=== PATIENT | female | born 1950 | race Caucasian/White ===

== ENCOUNTER 2020-12-04 20:25 | Inpatient (IN) | payer MEDICARE, MEDICAID, SELFPAY ==
--- NOTE | ~2020-12-04 | CT_ITS ---
EXAMINATION: CT HEAD WITHOUT CONTRAST (STROKE PROTOCOL) CLINICAL INFORMATION: Stroke protocol. Symptoms resolved COMPARISON: None TECHNIQUE: Contiguous axial imaging was performed from the skull base to vertex without intravenous administration of contrast. This CT examination was performed using dose optimization techniques as appropriate, variously including the following: *Automated exposure control *Adjustment of mA and/or kV according to patient size (this includes techniques or standardized protocols for targeted exams where dose is matched to indication/reason for exam; i.e. extremities or head) *Use of iterative reconstruction technique DLP: 675 mGy-cm FINDINGS: There is no intracranial hemorrhage, hematoma, or extra-axial fluid collection. The ventricles are normal in size. There is no hydrocephalus, edema, or mass effect. The gutierrez-white matter differentiation appears symmetric. There is no acute infarct or mass lesion. Remote CSF density lacunar infarct in the right caudate head. There is equivocal asymmetric hyperdensity in the right middle cerebral artery compared to the left. The calvarium appears intact. There is no pneumocephalus or orbital emphysema. No acute sinusitis. There is fluid in the inferior right mastoid air cells. CT/CT head for stroke IMPRESSION: No intracranial hemorrhage. No evidence of acute large vessel territory ischemia. Equivocal asymmetric hyperdensity in the right middle cerebral artery compared to the left. Favor this is due to atherosclerotic changes rather than thrombus. Recommend clinical correlation. This critical result was discussed with Simeon Grover MD by telephone at 12/04/2020 9:10 PM and it was ascertained that the content and urgency of the report was understood at the time of direct communication.
--- NOTE | 2020-12-04 20:38 | PC.NURSE ---
MD romano notified of patient and pt to be brought to bed 9.
[2020-12-04 20:43] VITALS: BP 171/85; PULSE 65; RESP 16; TEMP 36.5; O2SAT 98; BMI 18.8
--- NOTE | 2020-12-04 20:43 | PC.NURSE ---
FAMILY REPORTS PT JUST FLEW BACK FROM [place], 12 HOUR FLIGHT. PT WAS WITH GRANDSON, ON FACETIME WITH DAUGHTER. DAUGHTER TOLD GRANDSON THAT IT LOOKS LIKE SHE'S HAVING A STROKE. FAMILY REPORT SLURRED SPEECH, UNABLE TO KEEP HEAD UPRIGHT AND DROOPING EYELIDS. SYMPTOMS BEGAN 30 MINUTES PRIOR TO ARRIVAL TO ER. PT ARRIVED WITH CLEAR SPEECH, EQUAL STRONG BILATERAL HANDS/ARMS/LEGS. EQUAL SMILE, NO FACIAL DROOP.
--- NOTE | 2020-12-04 20:49 | ECG_ITS ---
Test Reason : AFIB Blood Pressure : / mmHG Vent. Rate : 061 BPM Atrial Rate : 061 BPM P-R Int : 144 ms QRS Dur : 094 ms QT Int : 434 ms P-R-T Axes : 047 055 071 degrees QTc Int : 436 ms Normal sinus rhythm Left ventricular hypertrophy with repolarization abnormality Abnormal ECG No previous ECGs available Referred By: Simeon Grover Electronically Signed By:MARIAM NEWTON
[2020-12-04 20:55] LABS: Prothrombin Time Whole Bld POC 13.9 sec (11.1-13.5); ~PT, ~INR - Anti Coag Clinic 1.2 (0.9-1.1)
[2020-12-04 20:56] LABS: MANUAL DIFF FLAG NO
[2020-12-04 20:57] LABS: Basophils Absolute Auto 0.1 X10*3/uL (0.0-0.2); Basophils Percent Auto 1.7 % (0-2); Eosinophils Absolute Auto 0.3 X10*3/uL (0.0-0.4); Eosinophils Percent Auto 6.5 % (0-4); Hematocrit 46.5 % (37-47); Hemoglobin 16.5 g/dl (12.0-16.0); Imm Gran Abs Auto 0.01 X10*3/uL (0.00-0.03); Imm Gran Pct Auto 0.2 % (0.0-0.4); Lymphocytes Absolute Auto 1.4 X10*3/uL (1.2-4.9); Lymphocytes Percent Auto 29.2 % (20-40); Mean Corpuscular HGB Conc 35.5 g/dl (31.0-35.0); Mean Corpuscular Hemoglobin 31.1 pg (27.0-33.0); Mean Corpuscular Volume 87.7 fL (80-98); Mean Platelet Volume 9.7 fL (9.4-12.3); Monocytes Absolute Auto 0.4 X10*3/uL (0.1-1.2); Monocytes Percent Auto 7.8 % (2-11); Neutrophils Absolute Auto 2.5 X10*3/uL (2.0-8.3); Neutrophils Percent Auto 54.6 % (45-73); Platelet Count 161 X10*3/uL (160-400); Red Cell Distribution Width 13.9 % (11.0-16.0); White Blood Count 4.6 X10*3/uL (4.8-10.8)
[2020-12-04 21:14] LABS: Glucose, Whole Blood 121 mg/dL (60-115)
[2020-12-04 21:16] VITALS: BP 169/85; PULSE 59; RESP 18; O2SAT 98
[2020-12-04 21:20] LABS: Ethanol < 10 mg/dL
[2020-12-04 21:27] LABS: INTERNATIONAL NORM RATIO 1.3 (0.9-1.1); Prothrombin Time 14.3 SEC (9.9-13.0)
[2020-12-04 21:29] VITALS: BP 172/78; PULSE 61; RESP 16; O2SAT 95
[2020-12-04 21:29] LABS: Partial Thromboplastin Time 40.9 SEC (24.1-38.0)
[2020-12-04 21:44] LABS: COVID-19 Test Negative (Negative); IDNOW Serial# 9DD0AD1C
--- NOTE | 2020-12-04 21:46 | ED_ITS ---
HPI - Neuro Symptoms/Deficit General Chief Complaint: Stroke Stated Complaint: Stroke? Time Seen by Provider: 12/04/20 20:48 Source: patient and family (Grandson) Mode of arrival: ambulatory Limitations: no limitations History of Present Illness HPI Narrative: 70-year-old female who presents emergency department for evaluation of weakness, slurred speech and possible facial droop. The patient states that she traveled back from [place] today, she states that she went to the airport at 7:40 a.m. and arrived back in this area at 4:30 p.m.. She states that she was very tired. She when out to dinner with her family at the [employer] and ate dinner. She states that she had a good dinner and had no difficulty eating. At around 8:00 p.m. she was face time and with her sisters and apparently the patient's speech was slurred. There was also concerned that the patient may have had a facial droop, the grandson believes that the right side of the face was drooping but he patient believes that it may have been her left side. The patient's family was concerned that the patient was having a stroke, therefore they brought the patient to the emergency department for evaluation. According to the patient's grandson, the symptoms lasted approximately 10 minutes. The patient does have a history of peripheral arterial disease and has had a arterial femoral bypass in the past, stents in her lower extremities and she takes Xarelto and Plavix for this condition. Related Data Home Medications Medication Instructions Recorded Confirmed apixaban 5 mg tablet (Eliquis) 5 mg PO BID 12/04/20 12/04/20 atorvastatin 80 mg tablet 80 mg PO DAILY 12/04/20 12/04/20 carvedilol 12.5 mg tablet 12.5 mg PO BID 12/04/20 12/04/20 clopidogrel 75 mg tablet 75 mg PO DAILY 12/04/20 12/04/20 gabapentin 400 mg capsule 400 mg PO BID 12/04/20 12/04/20 hydralazine 50 mg tablet 50 mg PO TID 12/04/20 12/04/20 lisinopril 10 mg tablet 10 mg PO DAILY 12/04/20 12/04/20 montelukast 10 mg tablet 10 mg PO QPM 12/04/20 12/04/20 pantoprazole 40 mg tablet,delayed 40 mg PO DAILY 12/04/20 12/04/20 release potassium chloride 20 mEq 20 meq PO DAILY 12/04/20 12/04/20 tablet,extended release Allergies Allergy/AdvReac Type Severity Reaction Status Date / Time codeine Allergy Rash Verified 12/04/20 20:39 niacin Allergy Rash Verified 12/04/20 20:39 Review of Systems Review of Systems: Yes all other systems are reviewed and are negative [facility] Past Medical History [facility] Narrative: Past medical history: Hypertension, hyperlipidemia, spinal s tenosis, peripheral arterial disease of the lower extremities status post stent and bypass. Surgical history: Lower extremity arterial femoral bypass, lower extremity stents. Social history: The patient smokes 1/2 to 3/4 pack cigarettes per day times 55 years, she denies alcohol and drug use. Medical History (Updated 12/04/20 @ 23:15 by Simeon Grover MD) Hypercholesteremia Hypertension Spinal stenosis Social History Social History Alcohol intake: never Patient Tobacco Use Status: Current everyday Tobacco user Smoked in Last 30 Days: Yes Use of substances other than those prescribed or required for medical reasons: No Advance Directives: No Advance Directives Information Provided: No Physical Exam Vital Signs: Vital Signs: Last Vital Signs Temp 97.7 F 12/04/20 20:43 Pulse 56 12/04/20 22:00 Resp 18 12/04/20 22:00 BP 172/78 H 12/04/20 21:29 Pulse Ox 97 12/04/20 22:00 Body Mass Index 18.8 Const: General: cooperative and no acute distress Orie ntation/consciousness: oriented to person and oriented to place Limitations: no limitations HENMT: Head: Yes normal to inspection, Yes normocephalic and Yes atraumatic Ears: external ears normal General nose exam: Normal external nose present Face and sinus: Yes normal facial exam Mouth: Normal oral and palatal mucosa present Throat: Yes posterior oropharynx normal Eyes: General: appearance normal, both eyes and all related structures Pupils: Equal, round and reactive pupils present Neck: Neck: Yes normal visual inspection, Yes no lymphadenopathy, Yes trachea midline and Yes supple Chest: Chest palpation & inspection: normal inspection of the chest and normal palpation of entire chest wall Resp: Effort & Inspection: normal respiratory effort and able to speak in complete sentences Auscultation: clear to auscultation bilaterally Cardio: Rate: regular rate Rhythm: regular rhythm Heart sounds: S1 normal heart sound present, S2 normal heart sound present and no murmurs GI: Inspection: Yes normal to inspection Palpation (GI): Soft to palpation, nontender and no guarding Auscultation: normal bowel sounds : General: Yes no CVA tenderness Back/Spine/Pelvis: Back: no CVA tenderness Skin: General skin exam: no rashes or lesions noted Neuro: General: oriented to person and oriented to place Cranial nerves: Yes CN's II-XII intact bilaterally and Yes Equal, round and reactive pupils present Cognition (Neuro): normal cognition Motor exam (neuro): 5/5 motor strength present throughout Extrem: General: Yes normal to inspection Psych: Appearance: grossly normal Speech and movement: Normal speech and movement present Affect: normal affect Attitude: cooperative Thought process: Normal thought process present Thought content: Normal thought content present Course Course Course Narrative: 70-year-old female who presents emergency department for evaluation of slurred speech and facial droop which began around 8:00 p.m. and lasted approximately 10 minutes, symptoms resolved at the time of my evaluation. Patient's physical examination was unremarkable. The patient's NIH stroke scale was 0. I ordered a stroke evaluation on the patient. The CT scan of the patient's head revealed no acute bleed her large stroke, the radiologist felt that there may be some increased density in the right MCA compared to the left but this was a subtle finding. The patient does take Xarelto and Plavix for her peripheral arterial disease and is anticoagulated therefore she is not a thrombolytics candidate. I did discuss the patient's presentation with the covering neurologist, Dr. Escalona. He recommended that the patient be hospitalized for further evaluation of TIA versus stroke. 2232: The patient's WBC was low at 4600 otherwise her laboratory evaluation was unremarkable. Patient's 12 EKG was unremarkable with no evidence of atrial fibrillation/flutter. I did discuss admission with the patient, initially she was reluctant to be admitted however she did agree after discussion with her family. I will discuss admission with the covering hospitalist. 2314: I discussed the case with the covering hospitalist, Dr. Patel and patient was accepted on to the hospital service. MDM - Neuro Symptoms/Deficit Lab Data Result diagrams: 12/04/20 20:51 12/04/20 21:46 Labs: Lab Results 12/04/20 12/04/20 12/04/20 Range/Units 20:50 20:51 20:51 WBC 4.6 L (4.8-10.8) X10*3/uL RBC 5.30 (4.20-5.50) X10*6/uL Hgb 16.5 H (12.0-16.0) g/dl Hct 46.5 (37-47) % MCV 87.7 (80-98) fL MCH 31.1 (27.0-33.0) pg MCHC 35.5 H (31.0-35.0) g/dl RDW 13.9 (11.0-16.0) % Plt Count 161 (160-400) X10*3/uL MPV 9.7 (9.4-12.3) fL Immature Gran % (Auto) 0.2 (0.0-0.4) % Neut % (Auto) 54.6 (45-73) % Lymph % (Auto) 29.2 (20-40) % Eaton % (Auto) 7.8 (2-11) % Eos % (Auto) 6.5 H (0-4) % Baso % (Auto) 1.7 (0-2) % Lymph # (Auto) 1.4 (1.2-4.9) X10*3/uL Eaton # (Auto) 0.4 (0.1-1.2) X10*3/uL Eos # (Auto) 0.3 (0.0-0.4) X10*3/uL Baso # (Auto) 0.1 (0.0-0.2) X10*3/uL Abs Immat Gran (auto) 0.01 (0.00-0.03) X10*3/uL Absolute Neuts (auto) 2.5 (2.0-8.3) X10*3/uL Absolute Nucleated RBC 0.000 (0.0-0.012) X10*3/uL Nucleated RBC % (auto) 0.0 (0.0-0.2) /100WBC PT (9.9-13.0) SEC Whole Blood PT (11.1-13.5) sec INR (0.9-1.1) Whole Blood INR (0.9-1.1) APTT (24.1-38.0) SEC Sodium (135-145) mmol/L Potassium (3.3-5.1) mmol/L Chloride (96-108) mmol/L Carbon Dioxide (22-29) mmol/L Anion Gap (12-20) BUN (9-16) mg/dL Creatinine (0.5-1.4) mg/dL Estim Creat Clear Calc Estimated GFR POC Glucose 121 H (60-115) mg/dL Random Glucose (60-115) mg/dL Calcium (8.4-10.2) mg/dL Total Bilirubin (0.0-1.0) mg/dL Direct Bilirubin (0.0-0.5) mg/dL AST (5-31) U/L ALT (0-31) U/L Alkaline Phosphatase (39-117) U/L Total Creatine Kinase (26-140) U/L Troponin I High Sens (<3.5-17.0) ng/L Total Protein (6.5-8.0) g/dL Albumin (3.5-5.0) g/dL Ethyl Alcohol < 10 mg/dL COVID-19 ([facility]) (Negative) COVID-19 Clin Com 12/04/20 12/04/20 12/04/20 Range/Units 20:51 20:52 21:10 WBC (4.8-10.8) X10*3/uL RBC (4.20-5.50) X10*6/uL Hgb (12.0-16.0) g/dl Hct (37-47) % MCV (80-98) fL MCH (27.0-33.0) pg MCHC (31.0-35.0) g/dl RDW (11.0-16.0) % Plt Count (160-400) X10*3/uL MPV (9.4-12.3) fL Immature Gran % (Auto) (0.0-0.4) % Neut % (Auto) (45-73) % Lymph % (Auto) (20-40) % Eaton % (Auto) (2-11) % Eos % (Auto) (0-4) % Baso % (Auto) (0-2) % Lymph # (Auto) (1.2-4.9) X10*3/uL Eaton # (Auto) (0.1-1.2) X10*3/uL Eos # (Auto) (0.0-0.4) X10*3/uL Baso # (Auto) (0.0-0.2) X10*3/uL Abs Immat Gran (auto) (0.00-0.03) X10*3/uL Absolute Neuts (auto) (2.0-8.3) X10*3/uL Absolute Nucleated RBC (0.0-0.012) X10*3/uL Nucleated RBC % (auto) (0.0-0.2) /100WBC PT 14.3 H (9.9-13.0) SEC Whole Blood PT 13.9 H (11.1-13.5) sec INR 1.3 H (0.9-1.1) Whole Blood INR 1.2 H (0.9-1.1) APTT 40.9 H (24.1-38.0) SEC Sodium (135-145) mmol/L Potassium (3.3-5.1) mmol/L Chloride (96-108) mmol/L Carbon Dioxide (22-29) mmol/L Anion Gap (12-20) BUN (9-16) mg/dL Creatinine (0.5-1.4) mg/dL Estim Creat Clear Calc Estimated GFR POC Glucose (60-115) mg/dL Random Glucose (60-115) mg/dL Calcium (8.4-10.2) mg/dL Total Bilirubin (0.0-1.0) mg/dL Direct Bilirubin (0.0-0.5) mg/dL AST (5-31) U/L ALT (0-31) U/L Alkaline Phosphatase (39-117) U/L Total Creatine Kinase (26-140) U/L Troponin I High Sens 5.0 (<3.5-17.0) ng/L Total Protein (6.5-8.0) g/dL Albumin (3.5-5.0) g/dL Ethyl Alcohol mg/dL COVID-19 ([facility]) (Negative) COVID-19 Clin Com 12/04/20 12/04/20 12/04/20 Range/Units 21:10 21:46 Unknown WBC (4.8-10.8) X10*3/uL RBC (4.20-5.50) X10*6/uL Hgb (12.0-16.0) g/dl Hct (37-47) % MCV (80-98) fL MCH (27.0-33.0) pg MCHC (31.0-35.0) g/dl RDW (11.0-16.0) % Plt Count (160-400) X10*3/uL MPV (9.4-12.3) fL Immature Gran % (Auto) (0.0-0.4) % Neut % (Auto) (45-73) % Lymph % (Auto) (20-40) % Eaton % (Auto) (2-11) % Eos % (Auto) (0-4) % Baso % (Auto) (0-2) % Lymph # (Auto) (1.2-4.9) X10*3/uL Eaton # (Auto) (0.1-1.2) X10*3/uL Eos # (Auto) (0.0-0.4) X10*3/uL Baso # (Auto) (0.0-0.2) X10*3/uL Abs Immat Gran (auto) (0.00-0.03) X10*3/uL Absolute Neuts (auto) (2.0-8.3) X10*3/uL Absolute Nucleated RBC (0.0-0.012) X10*3/uL Nucleated RBC % (auto) (0.0-0.2) /100WBC PT (9.9-13.0) SEC Whole Blood PT (11.1-13.5) sec INR (0.9-1.1) Whole Blood INR (0.9-1.1) APTT (24.1-38.0) SEC Sodium 132 L (135-145) mmol/L Potassium 3.8 (3.3-5.1) mmol/L Chloride 94 L (96-108) mmol/L Carbon Dioxide 29 (22-29) mmol/L Anion Gap 13 (12-20) BUN 13 (9-16) mg/dL Creatinine 0.84 (0.5-1.4) mg/dL Estim Creat Clear Calc 44.6 Estimated GFR > 60 POC Glucose (60-115) mg/dL Random Glucose 93 (60-115) mg/dL Calcium 9.7 (8.4-10.2) mg/dL Total Bilirubin 0.4 Cancelled (0.0-1.0) mg/dL Direct Bilirubin 0.2 Cancelled (0.0-0.5) mg/dL AST 23 Cancelled (5-31) U/L ALT 11 Cancelled (0-31) U/L Alkaline Phosphatase 65 Cancelled (39-117) U/L Total Creatine Kinase 62 (26-140) U/L Troponin I High Sens (<3.5-17.0) ng/L Total Protein 7.3 Cancelled (6.5-8.0) g/dL Albumin 4.4 Cancelled (3.5-5.0) g/dL Ethyl Alcohol mg/dL COVID-19 ([facility]) Negative (Negative) COVID-19 Clin Com See Note NIH Stroke Scale Internal: Initial- Upon Arrival Level of Consciousness: Alert Level of Consciousness Questions: Answers both questions correctly Level of Consciousness Commands: Performs both tasks correctly Best Gaze: Normal Visual: No visual loss Facial Palsy: Normal Motor Arm (Right): No drift Motor Arm (Left): No drift Motor Leg (Right): No drift Motor Leg (Left): No drift Limb Ataxia: Absent Sensory: Normal Best Language: No aphasia Dysarthia: Normal Extinction and Inattention: No abnormality Score: 0 Discharge Plan Discharge Patient Disposition: Admitted As Inpatient Prescriptions: No Action atorvastatin 80 mg Tablet 80 mg PO DAILY RF: 0 carvedilol 12.5 mg Tablet 12.5 mg PO BID RF: 0 gabapentin 400 mg Capsule 400 mg PO BID RF: 0 clopidogrel 75 mg Tablet 75 mg PO DAILY RF: 0 pantoprazole 40 mg Tablet,Delayed Release (Dr/Ec) 40 mg PO DAILY RF: 0 lisinopril 10 mg Tablet 10 mg PO DAILY RF: 0 montelukast 10 mg Tablet 10 mg PO QPM RF: 0 hydralazine 50 mg Tablet 50 mg PO TID RF: 0 Eliquis 5 mg Tablet 5 mg PO BID RF: 0 potassium chloride 20 mEq Tablet Extended Release 20 meq PO DAILY RF: 0
[2020-12-04 22:00] VITALS: PULSE 56; RESP 18; O2SAT 97
[2020-12-04 22:06] LABS: Alanine Aminotransferase 11 U/L (0-31); Albumin Level 4.4 g/dL (3.5-5.0); Alkaline Phosphatase 65 U/L (39-117); Anion Gap 13 (12-20); Aspartate Amino Transferase 23 U/L (5-31); Bilirubin Direct 0.2 mg/dL (0.0-0.5); Bilirubin Total 0.4 mg/dL (0.0-1.0); Blood Urea Nitrogen 13 mg/dL (9-16); Calcium 9.7 mg/dL (8.4-10.2); Carbon Dioxide 29 mmol/L (22-29); Chloride 94 mmol/L (96-108); Creatinine Clr Calc Pharmacy 44.6; Estimated Glomerular Filt Rate > 60; Glucose Random 93 mg/dL (60-115); Potassium 3.8 mmol/L (3.3-5.1); Sodium 132 mmol/L (135-145); Total Protein 7.3 g/dL (6.5-8.0)
[2020-12-04 22:15] LABS: Stroke Lab Use COMPLETE
--- NOTE | 2020-12-04 22:22 | PC.NURSE ---
Per daughter Leidy [phone] Per daughter pt has history of TIA and dementia. there is no official HCP on file. Md. Grover speaking to daughter with pt permission.
[2020-12-05] VITALS (12 sets, daily range): BP systolic 130–184; BP diastolic 65–98; PULSE 54–67; RESP 16–19; TEMP 36.2–36.9; O2SAT 94–97; BMI 19.3
--- NOTE | 2020-12-05 | EEG_ITS ---
This is a 16-channel EEG with an EKG lead. The patient is reported awake during the tracing. Background EEG rhythm is 8 to 10 hertz, 5 to 30 microvolt posteriorly, lower amplitude fast anteriorly. Photic stimulation does not produce any significant driving. Hyperventilation is not performed. Occasionally left temporal theta range, somewhat sharply controlled waveforms were noted. No definite sharp wave or spike was noted. Cardiac lead did not reveal any significant abnormality. IMPRESSION: No definite abnormality noted on this EEG. I recommend further evaluation with ambulatory 48-hour EEG. MD NICOLE Calles/ARGELIA / [phone]
[2020-12-05] MEDS: Gabapentin 400 MG CAPSULE PO ×3 (00:29→20:49)
[2020-12-05] MEDS: Montelukast Sodium 10 MG TABLET PO ×2 (00:29→20:49)
[2020-12-05] MEDS: carvediloL 12.5 MG TABLET PO ×3 (00:29→20:49)
[2020-12-05] MEDS: Apixaban 5 MG TABLET PO ×3 (00:30→20:49)
[2020-12-05] MEDS: Omeprazole 20 MG CAPSULE.DR PO (05:15)
--- NOTE | 2020-12-05 07:18 | PM.IMHP ---
History of Present Illness Date of Service: 12/04/20 Chief Complaint: Slurred speech 70-year-old female with a history of dementia, hypercholesterolemia, hypertension, peripheral vascular disease, spinal stenosis presents to the hospital with a transient episode of slurred speech. Grandson at bedside confirmed information, patient reports that she had a long day traveling and that started at 7:00 a.m. and ended at 5:00 p.m. that day, she went to dinner with her grandchildren and at dinner she started having slurred speech, she reports that she tried talking but her mouth felt dry, her tongue felt heavy and she was not able to talk. This was witnessed by her grandson who is currently at bedside. Patient reports that the symptoms probably lasted about 10 minutes and she feels like she is back at her baseline right now. She reports that she feels droopiness of her left eyelid, but has no weakness of upper or lower extremities. She denies any numbness or tingling. She denies any chest pain, no shortness of breath, no abdominal pain nausea or vomiting, no diarrhea constipation, no urinary symptoms and no lower extremity edema. Vitals reviewed with no abnormality Labs on arrival Significant for WBC count of 4.[address] of the head shows no intracranial hemorrhage, no evidence of acute large vessel territory ischemia. This case was discussed with Neurology by the ED physician, patient will be admitted for observation and further evaluation by Neurology Review of Systems Review of Systems: Yes all other systems are reviewed and are negative FOR[facility]LY [facility], [facility] Medical History (Updated 12/05/20 @ 07:28 by Ana Patel MD) Dementia Hypercholesteremia Hypertension Peripheral vascular angioplasty status Peripheral vascular disease Spinal stenosis TIA (transient ischemic attack) Surgical History (Updated 12/05/20 @ 07:28 by Ana Patel MD) H/O angioplasty Social History Household Members: Family Housing: House Do you presently have visiting nurse or other home services: No Alcohol intake: never Patient Tobacco Use Status: Current everyday Tobacco user Smoked in Last 30 Days: Yes Patient Interested in Nicotine Replacement: No Patient Given Instructions on How to Stop Smoking: Yes Date Education Initiated: 12/05/20 Second Hand Smoke Exposure: No Use of substances other than those prescribed or required for medical reasons: No Have you been hit, kicked, punched, or otherwise hurt by someone within the past year? If so, by whom?: No Do you feel safe in your current relationship?: No Is there a partner from a previous relationship who is making you feel unsafe now?: No Are you made to feel afraid or neglected: No Advance Directives: No Advance Directives Information Provided: No Do you have thoughts of harming others: None Do you have a plan to hurt others: No Plan Recently lost weight without trying: Unsure Nutrition Risks: No Nutritional Risk Meds Allergies Allergy/AdvReac Type Severity Reaction Status Date / Time codeine Allergy Rash Verified 12/04/20 20:39 niacin Allergy Rash Verified 12/04/20 20:39 Active Medications: Current Medications Generic Name Dose Route Start Last Admin Trade Name Freq PRN Reason Stop Dose Admin Acetaminophen 650 mg 12/04/20 23:21 Acetaminophen 325 Mg Tablet PO Q6H PRN Pain, Mild (Pain Scale 1-3) Apixaban 5 mg 12/04/20 23:21 12/05/20 00:30 Apixaban 5 Mg Tablet PO 5 mg BID HEAVEN Administration Atorvastatin Calcium 80 mg 12/05/20 09:00 Atorvastatin Calcium 80 Mg Tablet PO DAILY HEAVEN Carvedilol 12.5 mg 12/04/20 23:30 12/05/20 00:29 Carvedilol 12.5 Mg Tablet PO 12.5 mg BID HEAVEN Administration Protocol Clopidogrel Bisulfate 75 mg 12/05/20 09:00 Clopidogrel Bisulfate 75 Mg Tablet PO DAILY HEAVEN Docusate Sodium 100 mg 12/04/20 23:21 Docusate Sodium 100 Mg Capsule PO DAILY PRN Constipation Gabapentin 400 mg 12/04/20 23:30 12/05/20 00:29 Gabapentin 400 Mg Capsule PO 400 mg BID HEAVEN Administration Hydralazine HCl 50 mg 12/04/20 23:30 12/05/20 00:30 Hydralazine Hcl 50 Mg Tablet PO Not Given TID HEAVEN Protocol Lisinopril 10 mg 12/05/20 09:00 Lisinopril 10 Mg Tablet PO DAILY HEAVEN Protocol Montelukast Sodium 10 mg 12/04/20 23:21 12/05/20 00:29 Montelukast Sodium 10 Mg Tablet PO 10 mg BEDTIME HEAVEN Administration Omeprazole 20 mg 12/05/20 06:30 12/05/20 05:15 Omeprazole 20 Mg Capsule. PO 20 mg DAILY@0630 [facility] Administration Ondansetron HCl 4 mg 12/04/20 23:21 Ondansetron Hcl 4 Mg/2 Ml Vial IVPUSH Q8H PRN Nausea and Vomiting Potassium Chloride 20 meq 12/05/20 09:00 Potassium Chloride Er 20 Meq Tab.Er.Prt PO DAILY [facility] Home Medications Medication Instructions Recorded Confirmed Last Taken Type apixaban 5 mg tablet (Eliquis) 5 mg PO BID 12/04/20 12/04/20 Unknown History atorvastatin 80 mg tablet 80 mg PO DAILY 12/04/20 12/04/20 Unknown History carvedilol 12.5 mg tablet 12.5 mg PO BID 12/04/20 12/04/20 Unknown History clopidogrel 75 mg tablet 75 mg PO DAILY 12/04/20 12/04/20 Unknown History gabapentin 400 mg capsule 400 mg PO BID 12/04/20 12/04/20 Unknown History hydralazine 50 mg tablet 50 mg PO TID 12/04/20 12/04/20 Unknown History lisinopril 10 mg tablet 10 mg PO DAILY 12/04/20 12/04/20 Unknown History montelukast 10 mg tablet 10 mg PO QPM 12/04/20 12/04/20 Unknown History pantoprazole 40 mg tablet,delayed 40 mg PO DAILY 12/04/20 12/04/20 Unknown History release potassium chloride 20 mEq 20 meq PO DAILY 12/04/20 12/04/20 Unknown History tablet,extended release Physical Exam Vital Signs and Narrative: Vital Signs: Last Vital Signs Temp 97.5 F 12/05/20 04:00 Pulse 54 12/05/20 04:00 Resp 18 12/05/20 04:00 BP 130/71 12/05/20 04:00 Pulse Ox 96 12/05/20 04:00 Body Mass Index 19.3 Const: General: cooperative and no acute distress Orientation/consciousness: patient oriented x3 Eyes: General: appearance normal, both eyes and all related structures Pupils: Equal, round and reactive pupils present Resp: Effort & Inspection: normal respiratory effort and able to speak in complete sentences Auscultation: clear to auscultation bilaterally Cardio: Rate: regular rate Rhythm: regular rhythm GI: Palpation (GI): Soft to palpation Auscultation: normal bowel sounds Skin: General skin exam: no rashes or lesions noted Neuro: Other: Cranial nerves 2-12 intact No neurological deficits Strength is 5/5 in all extremities General: patient oriented x3 Cranial nerves: Yes Equal, round and reactive pupils present Cognition (Neuro): normal cognition Extrem: General: Yes normal to inspection and Yes no pedal edema Results Labs CBC and Chem 7: 12/04/20 20:51 12/04/20 21:46 Labs: Laboratory Results - last 24 hr 12/04/20 12/04/20 12/04/20 20:50 20:51 20:51 MCV 87.7 MCH 31.1 MCHC 35.5 H RDW 13.9 Plt Count 161 MPV 9.7 Immature Gran % (Auto) 0.2 Neut % (Auto) 54.6 Lymph % (Auto) 29.2 Sharp % (Auto) 7.8 Eos % (Auto) 6.5 H Baso % (Auto) 1.7 Lymph # (Auto) 1.4 Sharp # (Auto) 0.4 Eos # (Auto) 0.3 Baso # (Auto) 0.1 Abs Immat Gran (auto) 0.01 Absolute Neuts (auto) 2.5 Absolute Nucleated RBC 0.000 Nucleated RBC % (auto) 0.0 PT Whole Blood PT INR Whole Blood INR APTT Anion Gap Estim Creat Clear Calc Estimated GFR POC Glucose 121 H Random Glucose Calcium Total Bilirubin Direct Bilirubin AST ALT Alkaline Phosphatase Total Creatine Kinase Troponin I High Sens Total Protein Albumin Ethyl Alcohol < 10 COVID-19 ([facility]) COVID-19 Clin Com 12/04/20 12/04/20 12/04/20 20:51 20:52 21:10 MCV MCH MCHC RDW Plt Count MPV Immature Gran % (Auto) Neut % (Auto) Lymph % (Auto) Sharp % (Auto) Eos % (Auto) Baso % (Auto) Lymph # (Auto) Sharp # (Auto) Eos # (Auto) Baso # (Auto) Abs Immat Gran (auto) Absolute Neuts (auto) Absolute Nucleated RBC Nucleated RBC % (auto) PT 14.3 H Whole Blood PT 13.9 H INR 1.3 H Whole Blood INR 1.2 H APTT 40.9 H Anion Gap Estim Creat Clear Calc Estimated GFR POC Glucose Random Glucose Calcium Total Bilirubin Direct Bilirubin AST ALT Alkaline Phosphatase Total Creatine Kinase Troponin I High Sens 5.0 Total Protein Albumin Ethyl Alcohol COVID-19 ([facility]) COVID-19 Clin Com 12/04/20 12/04/20 12/04/20 21:10 21:46 Unknown MCV MCH MCHC RDW Plt Count MPV Immature Gran % (Auto) Neut % (Auto) Lymph % (Auto) Sharp % (Auto) Eos % (Auto) Baso % (Auto) Lymph # (Auto) Sharp # (Auto) Eos # (Auto) Baso # (Auto) Abs Immat Gran (auto) Absolute Neuts (auto) Absolute Nucleated RBC Nucleated RBC % (auto) PT Whole Blood PT INR Whole Blood INR APTT Anion Gap 13 Estim Creat Clear Calc 44.6 Estimated GFR > 60 POC Glucose Random Glucose 93 Calcium 9.7 Total Bilirubin 0.4 Cancelled Direct Bilirubin 0.2 Cancelled AST 23 Cancelled ALT 11 Cancelled Alkaline Phosphatase 65 Cancelled Total Creatine Kinase 62 Troponin I High Sens Total Protein 7.3 Cancelled Albumin 4.4 Cancelled Ethyl Alcohol COVID-19 ([facility]) Negative COVID-19 Clin Com See Note Imaging Radiologist's Impressions: Impressions Head CT 12/04/20 20:49 IMPRESSION: No intracranial hemorrhage. No evidence of acute large vessel territory ischemia. Equivocal asymmetric hyperdensity in the right middle cerebral artery compared to the left. Favor this is due to atherosclerotic changes rather than thrombus. Recommend clinical correlation. This critical result was discussed with Simeon Grover MD by telephone at 12/04/2020 9:10 PM and it was ascertained that the content and urgency of the report was understood at the time of direct communication. Assessment and Plan (1) CVA (cerebral vascular accident): Status: Acute 70-year-old female who presents the hospital with a transient episode of slurred speech being admitted for evaluation by Neurology # slurred speech - most likely secondary to CVA with symptom resolution - patient reports history of significant peripheral vascular disease status post stents in her lower extremities - patient already on high dose statin, he is on anticoagulation for her history of lower extremity angioplasty as well as Plavix - neurology consulted, will await further recommendation prior to ordering MRI # history of peripheral vascular disease status post angioplasty - Continue Eliquis, Plavix, high-dose statin # hypertension - stable - continue hydralazine, lisinopril - allow for some permissive hypertension # GERD - continue pantoprazole DVT prophylaxis: Plavix Quality Stroke Does the patient have a stroke diagnosis?: No VTE Prior VTE?: No VTE Risk Level:: Medical - moderate - high VTE Device Contraindication: Treatment Not Indicated VTE Drug Contraindication: N/A - Med Ordered
[2020-12-05 07:31] LABS: MANUAL DIFF FLAG NO
[2020-12-05 07:35] LABS: Basophils Absolute Auto 0.1 X10*3/uL (0.0-0.2); Basophils Percent Auto 1.2 % (0-2); Eosinophils Absolute Auto 0.3 X10*3/uL (0.0-0.4); Eosinophils Percent Auto 6.3 % (0-4); Hemoglobin 15.8 g/dl (12.0-16.0); Imm Gran Abs Auto 0.01 X10*3/uL (0.00-0.03); Imm Gran Pct Auto 0.2 % (0.0-0.4); Lymphocytes Absolute Auto 1.4 X10*3/uL (1.2-4.9); Lymphocytes Percent Auto 27.8 % (20-40); Mean Corpuscular HGB Conc 34.3 g/dl (31.0-35.0); Mean Corpuscular Hemoglobin 30.6 pg (27.0-33.0); Mean Platelet Volume 10.3 fL (9.4-12.3); Monocytes Absolute Auto 0.5 X10*3/uL (0.1-1.2); Monocytes Percent Auto 9.2 % (2-11); Neutrophils Absolute Auto 2.8 X10*3/uL (2.0-8.3); Neutrophils Percent Auto 55.3 % (45-73); Platelet Count 159 X10*3/uL (160-400); Red Blood Count 5.17 X10*6/uL (4.20-5.50); Red Cell Distribution Width 14.1 % (11.0-16.0); White Blood Count 5.1 X10*3/uL (4.8-10.8)
[2020-12-05] MEDS: Clopidogrel Bisulfate 75 MG TABLET PO (07:35)
[2020-12-05] MEDS: Atorvastatin Calcium 80 MG TABLET PO (07:35)
[2020-12-05] MEDS: Potassium Chloride ER 20 MEQ TAB.ER.PRT PO (07:36)
[2020-12-05 08:22] LABS: Anion Gap 12 (12-20); Blood Urea Nitrogen 15 mg/dL (9-16); Calcium 9.4 mg/dL (8.4-10.2); Carbon Dioxide 27 mmol/L (22-29); Chloride 99 mmol/L (96-108); Cholesterol 190 mg/dL; Creatinine Clr Calc Pharmacy 49.1; Estimated Glomerular Filt Rate > 60; Glucose Random 76 mg/dL (60-115); HDL Cholesterol 44 mg/dL; LDL Cholesterol Calculated 131 mg/dl; Potassium 4.9 mmol/L (3.3-5.1); Sodium 133 mmol/L (135-145); Triglycerides 78 mg/dL
[2020-12-05 08:24] LABS: Glucose Urine UA NEG (NEG); Leukocyte Esterase Urine NEG (NEG); Nitrite Urine NEG (NEG); PH 6.5 (5.0-8.0); Specific Gravity - Urine <= 1.005 (1.005-1.025); Urine Blood NEG (NEG); Urine Ketones NEG (NEG); Urine Protein NEG (NEG-TRACE)
[2020-12-05 08:26] LABS: Appearance Urine CLEAR; Color Urine YELLOW
[2020-12-05 08:39] LABS: Amphetamine Screen Urine Not Detected (Not Detect); Barbiturates, Urine Not Detected (Not Detect); Benzodiazepines Screen Urine Not Detected (Not Detect); Cannabinoid Screen Urine Not Detected (Not Detect); Cocaine Screen Urine Not Detected (Not Detect); Fentanyl, urine Not Detected (Not Detect); Opiate Screen Urine Not Detected (Not Detect); Phencyclidine Screen Urine Not Detected (Not Detect)
--- NOTE | 2020-12-05 10:11 | PM.NEUROCN ---
History of Present Illness Data of Consult Service Date: 12/04/20 Primary Care Provider: Unknown Physician HPI Reason for consult: Stroke 70 years old woman with underlying history of hypertension who came to hospital after her family noted that she suddenly started to slur her speech her face became droopy and this event lasted for few minutes. She said that she remember everything but then her account was different from her family's, which suggested that she did not have full recollection of this event. Family also suggested that she had few of these events before and she had an appointment to see a neurologist in [facility] few days from now. She was in that area and was of a visitor in this area. [facility] Past Medical History Medical History (Updated 12/05/20 @ 10:14 by Becca Escalona MD) Dementia Hypercholesteremia Hypertension Peripheral vascular angioplasty status Peripheral vascular disease Spinal stenosis TIA (transient ischemic attack) Surgical History Surgical History (Updated 12/05/20 @ 07:28 by Ana Patel MD) H/O angioplasty Social History Social History Household Members: Family Housing: House Do you presently have visiting nurse or other home services: No Alcohol intake: never Patient Tobacco Use Status: Current everyday Tobacco user Smoked in Last 30 Days: Yes Patient Interested in Nicotine Replacement: No Patient Given Instructions on How to Stop Smoking: Yes Date Education Initiated: 12/05/20 Second Hand Smoke Exposure: No Use of substances other than those prescribed or required for medical reasons: No Have you been hit, kicked, punched, or otherwise hurt by someone within the past year? If so, by whom?: No Do you feel safe in your current relationship?: No Is there a partner from a previous relationship who is making you feel unsafe now?: No Are you made to feel afraid or neglected: No Advance Directives: No Advance Directives Information Provided: No Do you have thoughts of harming others: None Do you have a plan to hurt others: No Plan Recently lost weight without trying: Unsure Nutrition Risks: No Nutritional Risk Meds Allergies Allergy/AdvReac Type Severity Reaction Status Date / Time codeine Allergy Rash Verified 12/04/20 20:39 niacin Allergy Rash Verified 12/04/20 20:39 Active Medications: Current Medications Generic Name Dose Route Start Last Admin Trade Name Stefan PRN Reason Stop Dose Admin Acetaminophen 650 mg 12/04/20 23:21 Acetaminophen 325 Mg Tablet PO Q6H PRN Pain, Mild (Pain Scale 1-3) Apixaban 5 mg 12/04/20 23:21 12/05/20 07:35 Apixaban 5 Mg Tablet PO 5 mg BID HEAVEN Administration Atorvastatin Calcium 80 mg 12/05/20 09:00 12/05/20 07:35 Atorvastatin Calcium 80 Mg Tablet PO 80 mg DAILY [facility]AVEN Administration Carvedilol 12.5 mg 12/04/20 23:30 12/05/20 07:39 Carvedilol 12.5 Mg Tablet PO 12.5 mg BID HEAVEN Administration Protocol Clopidogrel Bisulfate 75 mg 12/05/20 09:00 12/05/20 07:35 Clopidogrel Bisulfate 75 Mg Tablet PO 75 mg DAILY [facility]AVEN Administration Docusate Sodium 100 mg 12/04/20 23:21 Docusate Sodium 100 Mg Capsule PO DAILY PRN Constipation Gabapentin 400 mg 12/04/20 23:30 12/05/20 07:35 Gabapentin 400 Mg Capsule PO 400 mg BID HEAVEN Administration Hydralazine HCl 50 mg 12/04/20 23:30 12/05/20 00:30 Hydralazine Hcl 50 Mg Tablet PO Not Given TID HEAVEN Protocol Montelukast Sodium 10 mg 12/04/20 23:21 12/05/20 00:29 Montelukast Sodium 10 Mg Tablet PO 10 mg BEDTIME HEAVEN Administration Omeprazole 20 mg 12/05/20 06:30 12/05/20 05:15 Omeprazole 20 Mg Capsule.Dr PO 20 mg DAILY@0630 [facility] Administration Ondansetron HCl 4 mg 12/04/20 23:21 Ondansetron Hcl 4 Mg/2 Ml Vial IVPUSH Q8H PRN Nausea and Vomiting Potassium Chloride 20 meq 12/05/20 09:00 12/05/20 07:36 Potassium Chloride Er 20 Meq Tab.Er.Prt PO 20 meq DAILY [facility] Administration Home Medications Medication Instructions Recorded Confirmed Last Taken Type apixaban 5 mg tablet (Eliquis) 5 mg PO BID 12/04/20 12/04/20 Unknown History atorvastatin 80 mg tablet 80 mg PO DAILY 12/04/20 12/04/20 Unknown History carvedilol 12.5 mg tablet 12.5 mg PO BID 12/04/20 12/04/20 Unknown History clopidogrel 75 mg tablet 75 mg PO DAILY 12/04/20 12/04/20 Unknown History gabapentin 400 mg capsule 400 mg PO BID 12/04/20 12/04/20 Unknown History hydralazine 50 mg tablet 50 mg PO TID 12/04/20 12/04/20 Unknown History lisinopril 10 mg tablet 10 mg PO DAILY 12/04/20 12/04/20 Unknown History montelukast 10 mg tablet 10 mg PO QPM 12/04/20 12/04/20 Unknown History pantoprazole 40 mg tablet,delayed 40 mg PO DAILY 12/04/20 12/04/20 Unknown History release potassium chloride 20 mEq 20 meq PO DAILY 12/04/20 12/04/20 Unknown History tablet,extended release Physical Exam Vital Signs: Vital Signs: Last Vital Signs Temp 97.6 F 12/05/20 07:46 Pulse 57 12/05/20 07:46 Resp 16 12/05/20 07:46 BP 142/85 H 12/05/20 07:46 Pulse Ox 95 12/05/20 07:46 Body Mass Index 19.3 Neuro: Other: She was alert and awake with normal spontaneity of speech fluency comprehension and affect. Pupils were round reactive to light. Face was symmetrical. There was no obvious focal weakness. Deep tendon reflexes were trace to 1+ with flexor plantars. Results Labs CBC & Chem 7: 12/05/20 05:56 12/05/20 05:56 Labs: Short CBC 12/04/20 12/05/20 Range/Units 20:51 05:56 WBC 4.6 L 5.1 (4.8-10.8) X10*3/uL Hgb 16.5 H 15.8 (12.0-16.0) g/dl Hct 46.5 46.0 (37-47) % Plt Count 161 159 L (160-400) X10*3/uL BMP 12/04/20 12/05/20 21:46 05:56 Sodium 132 L 133 L Potassium 3.8 4.9 D Chloride 94 L 99 Carbon Dioxide 29 27 BUN 13 15 Creatinine 0.84 0.78 Calcium 9.7 9.4 Cardiac Enzymes 12/04/20 Range/Units 21:46 Total Creatine Kinase 62 (26-140) U/L Liver Function 12/04/20 12/04/20 Range/Units 21:46 Unknown Total Bilirubin 0.4 Cancelled (0.0-1.0) mg/dL Direct Bilirubin 0.2 Cancelled (0.0-0.5) mg/dL AST 23 Cancelled (5-31) U/L ALT 11 Cancelled (0-31) U/L Alkaline Phosphatase 65 Cancelled (39-117) U/L Albumin 4.4 Cancelled (3.5-5.0) g/dL Urine 12/05/20 Range/Units 08:06 Urine Color YELLOW Urine Appearance CLEAR Urine pH 6.5 (5.0-8.0) Ur Specific [place] <= 1.005 (1.005-1.025) Urine Protein NEG (NEG-TRACE) MG/DL Urine Glucose (UA) NEG (NEG) MG/DL Her noncontrast head CT revealed moderate amount of chronic microvascular ischemic disease. Assessment and Plan (1) Complex partial seizure: Status: Acute Her overall presentation was suggestive of complex partial seizure disorder. She had few of these events and has an appointment to see a neurologist in few days in [facility]. My recommendation at this time is to continue her baseline medicines and she should have the neurology evaluation and probably electroencephalography to confirm this diagnosis and its appropriate treatment. In the meantime she should be careful and should avoid driving and activities that could put her life in danger such as swimming alone or sitting in a soaking tub alone. Procedures Date of Service Date of Service: 12/05/20
--- NOTE | 2020-12-05 11:01 | MHC.CM.PN ---
MET WITH PT AND FAMILY PT IS Litzy THOMPSON ,SHE LIVES ALONE AND IS FROM [place] PT DOES NOT FEEL SHE WILL NEED SERVICES SHI STRAUSS HER FAMILY WILL TRANSPORT CAROL ANN E SHE EXPECTS DC TO BE TOMORROW
--- NOTE | 2020-12-05 14:20 | HO.PM.IMPN ---
Subjective Subjective Date of Service: 12/05/20 Interval History: seen and examined this morning. follow up for episode of slurred speech, initially thought to be related to tia vs cva no further episodes since admission. However patient and grandson at bedside indicate that the patient has had 2 previous episodes prior to this one. all occurred with some level of alteration of awareness including one episode that occurred while driving. Review of Systems Review of Systems: Yes all other systems are reviewed and are negative Constitutional Constitutional: Denies chills and Denies fever(s) Cardiovascular Cardiovascular: Denies chest pain Respiratory Respiratory: Denies cough Gastrointestinal Gastrointestinal: Denies abdominal pain Physical Exam Vital Signs: Vital Signs: Last Vital Signs Temp 97.9 F 12/05/20 11:13 Pulse 60 12/05/20 11:13 Resp 18 12/05/20 11:13 BP 160/75 H 12/05/20 11:13 Pulse Ox 95 12/05/20 11:13 Body Mass Index 19.3 Const: General: healthy appearing, comfortable, no acute distress, alert and awake Nutritional Appearance: thin Orientation/consciousness: patient oriented x3 HENMT: Head: Yes normocephalic and Yes atraumatic Eyes: Sclerae: sclerae normal Chest: Chest palpation & inspection: normal inspection of the chest Resp: Effort & Inspection: normal respiratory effort and no respiratory distress Auscultation: clear to auscultation bilaterally Cardio: Rate: regular rate Rhythm: regular rhythm GI: Palpation (GI): Soft to palpation and nontender Neuro: General: patient oriented x3 Cranial nerves: Yes CN's II-XII intact bilaterally and Yes Bilaterally intact EOM present Objective Data Current Medications Generic Name Dose Route Start Last Admin Trade Name Jooq PRN Reason Stop Dose Admin Acetaminophen 650 mg 12/04/20 23:21 Acetaminophen 325 Mg Tablet PO Q6H PRN Pain, Mild (Pain Scale 1-3) Apixaban 5 mg 12/04/20 23:21 12/05/20 07:35 Apixaban 5 Mg Tablet PO 5 mg BID HEAVEN Administration Atorvastatin Calcium 80 mg 12/05/20 09:00 12/05/20 07:35 Atorvastatin Calcium 80 Mg Tablet PO 80 mg DAILY HEAVEN Administration Carvedilol 12.5 mg 12/04/20 23:30 12/05/20 07:39 Carvedilol 12.5 Mg Tablet PO 12.5 mg BID HEAVEN Administration Protocol Clopidogrel Bisulfate 75 mg 12/05/20 09:00 12/05/20 07:35 Clopidogrel Bisulfate 75 Mg Tablet PO 75 mg DAILY HEAVEN Administration Docusate Sodium 100 mg 12/04/20 23:21 Docusate Sodium 100 Mg Capsule PO DAILY PRN Constipation Gabapentin 400 mg 12/04/20 23:30 12/05/20 07:35 Gabapentin 400 Mg Capsule PO 400 mg BID HEAVEN Administration Hydralazine HCl 50 mg 12/04/20 23:30 12/05/20 00:30 Hydralazine Hcl 50 Mg Tablet PO Not Given TID HEAVEN Protocol Lisinopril 10 mg 12/06/20 09:00 Lisinopril 10 Mg Tablet PO DAILY [facility] Protocol Montelukast Sodium 10 mg 12/04/20 23:21 12/05/20 00:29 Montelukast Sodium 10 Mg Tablet PO 10 mg BEDTIME HEAVEN Administration Omeprazole 20 mg 12/05/20 06:30 12/05/20 05:15 Omeprazole 20 Mg Capsule.Dr PO 20 mg DAILY@0630 HEAVEN Administration Ondansetron HCl 4 mg 12/04/20 23:21 Ondansetron Hcl 4 Mg/2 Ml Vial IVPUSH Q8H PRN Nausea and Vomiting Potassium Chloride 20 meq 12/05/20 09:00 12/05/20 07:36 Potassium Chloride Er 20 Meq Tab.Er.Prt PO 20 meq DAILY HEAVEN Administration Labs CBC & Chem 7: 12/05/20 05:56 12/05/20 05:56 Labs: Laboratory Results - last 24 hr 12/04/20 12/04/20 12/04/20 20:50 20:51 20:51 MCV 87.7 MCH 31.1 MCHC 35.5 H RDW 13.9 Plt Count 161 MPV 9.7 Immature Gran % (Auto) 0.2 Neut % (Auto) 54.6 Lymph % (Auto) 29.2 [place] % (Auto) 7.8 Eos % (Auto) 6.5 H Baso % (Auto) 1.7 Lymph # (Auto) 1.4 [place] # (Auto) 0.4 Eos # (Auto) 0.3 Baso # (Auto) 0.1 Abs Immat Gran (auto) 0.01 Absolute Neuts (auto) 2.5 Absolute Nucleated RBC 0.000 Nucleated RBC % (auto) 0.0 PT Whole Blood PT INR Whole Blood INR APTT Anion Gap Estim Creat Clear Calc Estimated GFR POC Glucose 121 H Random Glucose Calcium Total Bilirubin Direct Bilirubin AST ALT Alkaline Phosphatase Total Creatine Kinase Troponin I High Sens Total Protein Albumin Triglycerides Cholesterol LDL Cholesterol, Calc HDL Cholesterol Urine Color Urine Appearance Urine pH Ur Specific [place] Urine Protein Urine Glucose (UA) Urine Ketones Urine Blood Urine Nitrite Ur Leukocyte Esterase Urine Opiates Screen Urine Fentanyl Screen Ur Barbiturates Screen Ur Phencyclidine Scrn Ur Amphetamines Screen U Benzodiazepines Scrn Urine Cocaine Screen U Marijuana (THC) Screen Ethyl Alcohol < 10 COVID-19 (JEAN PAUL) COVID-19 [employer] 12/04/20 12/04/20 12/04/20 20:51 20:52 21:10 MCV MCH MCHC RDW Plt Count MPV Immature Gran % (Auto) Neut % (Auto) Lymph % (Auto) [place] % (Auto) Eos % (Auto) Baso % (Auto) Lymph # (Auto) [place] # (Auto) Eos # (Auto) Baso # (Auto) Abs Immat Gran (auto) Absolute Neuts (auto) Absolute Nucleated RBC Nucleated RBC % (auto) PT 14.3 H Whole Blood PT 13.9 H INR 1.3 H Whole Blood INR 1.2 H APTT 40.9 H Anion Gap Estim Creat Clear Calc Estimated GFR POC Glucose Random Glucose Calcium Total Bilirubin Direct Bilirubin AST ALT Alkaline Phosphatase Total Creatine Kinase Troponin I High Sens 5.0 Total Protein Albumin Triglycerides Cholesterol LDL Cholesterol, Calc HDL Cholesterol Urine Color Urine Appearance Urine pH Ur Specific [place] Urine Protein Urine Glucose (UA) Urine Ketones Urine Blood Urine Nitrite Ur Leukocyte Esterase Urine Opiates Screen Urine Fentanyl Screen Ur Barbiturates Screen Ur Phencyclidine Scrn Ur Amphetamines Screen U Benzodiazepines Scrn Urine Cocaine Screen U Marijuana (THC) Screen Ethyl Alcohol COVID-19 (JEAN PAUL) COVID-19 [employer] 12/04/20 12/04/20 12/04/20 21:10 21:46 Unknown MCV MCH MCHC RDW Plt Count MPV Immature Gran % (Auto) Neut % (Auto) Lymph % (Auto) [place] % (Auto) Eos % (Auto) Baso % (Auto) Lymph # (Auto) [place] # (Auto) Eos # (Auto) Baso # (Auto) Abs Immat Gran (auto) Absolute Neuts (auto) Absolute Nucleated RBC Nucleated RBC % (auto) PT Whole Blood PT INR Whole Blood INR APTT Anion Gap 13 Estim Creat Clear Calc 44.6 Estimated GFR > 60 POC Glucose Random Glucose 93 Calcium 9.7 Total Bilirubin 0.4 Cancelled Direct Bilirubin 0.2 Cancelled AST 23 Cancelled ALT 11 Cancelled Alkaline Phosphatase 65 Cancelled Total Creatine Kinase 62 Troponin I High Sens Total Protein 7.3 Cancelled Albumin 4.4 Cancelled Triglycerides Cholesterol LDL Cholesterol, Calc HDL Cholesterol Urine Color Urine Appearance Urine pH Ur Specific [place] Urine Protein Urine Glucose (UA) Urine Ketones Urine Blood Urine Nitrite Ur Leukocyte Esterase Urine Opiates Screen Urine Fentanyl Screen Ur Barbiturates Screen Ur Phencyclidine Scrn Ur Amphetamines Screen U Benzodiazepines Scrn Urine Cocaine Screen U Marijuana (THC) Screen Ethyl Alcohol COVID-19 (JEAN PAUL) Negative COVID-19 Clin Com See Note 12/05/20 12/05/20 12/05/20 05:56 05:56 08:06 MCV 89.0 MCH 30.6 MCHC 34.3 RDW 14.1 Plt Count 159 L MPV 10.3 Immature Gran % (Auto) 0.2 Neut % (Auto) 55.3 Lymph % (Auto) 27.8 [place] % (Auto) 9.2 Eos % (Auto) 6.3 H Baso % (Auto) 1.2 Lymph # (Auto) 1.4 [place] # (Auto) 0.5 Eos # (Auto) 0.3 Baso # (Auto) 0.1 Abs Immat Gran (auto) 0.01 Absolute Neuts (auto) 2.8 Absolute Nucleated RBC 0.000 Nucleated RBC % (auto) 0.0 PT Whole Blood PT INR Whole Blood INR APTT Anion Gap 12 Estim Creat Clear Calc 49.1 Estimated GFR > 60 POC Glucose Random Glucose 76 Calcium 9.4 Total Bilirubin Direct Bilirubin AST ALT Alkaline Phosphatase Total Creatine Kinase Troponin I High Sens Total Protein Albumin Triglycerides 78 Cholesterol 190 LDL Cholesterol, Calc 131 HDL Cholesterol 44 Urine Color YELLOW Urine Appearance CLEAR Urine pH 6.5 Ur Specific [place] <= 1.005 Urine Protein NEG Urine Glucose (UA) NEG Urine Ketones NEG Urine Blood NEG Urine Nitrite NEG Ur Leukocyte Esterase NEG Urine Opiates Screen Urine Fentanyl Screen Ur Barbiturates Screen Ur Phencyclidine Scrn Ur Amphetamines Screen U Benzodiazepines Scrn Urine Cocaine Screen U Marijuana (THC) Screen Ethyl Alcohol COVID-19 (JEAN PAUL) COVID-19 Clin Com 12/05/20 08:06 MCV MCH MCHC RDW Plt Count MPV Immature Gran % (Auto) Neut % (Auto) Lymph % (Auto) [place] % (Auto) Eos % (Auto) Baso % (Auto) Lymph # (Auto) [place] # (Auto) Eos # (Auto) Baso # (Auto) Abs Immat Gran (auto) Absolute Neuts (auto) Absolute Nucleated RBC Nucleated RBC % (auto) PT Whole Blood PT INR Whole Blood INR APTT Anion Gap Estim Creat Clear Calc Estimated GFR POC Glucose Random Glucose Calcium Total Bilirubin Direct Bilirubin AST ALT Alkaline Phosphatase Total Creatine Kinase Troponin I High Sens Total Protein Albumin Triglycerides Cholesterol LDL Cholesterol, Calc HDL Cholesterol Urine Color Urine Appearance Urine pH Ur Specific [place] Urine Protein Urine Glucose (UA) Urine Ketones Urine Blood Urine Nitrite Ur Leukocyte Esterase Urine Opiates Screen Not Detected Urine Fentanyl Screen Not Detected Ur Barbiturates Screen Not Detected Ur Phencyclidine Scrn Not Detected Ur Amphetamines Screen Not Detected U Benzodiazepines Scrn Not Detected Urine Cocaine Screen Not Detected U Marijuana (THC) Screen Not Detected Ethyl Alcohol COVID-19 (JEAN PAUL) COVID-19 Clin Com Assessment and Plan (1) Complex partial seizure: Status: Acute Assessment and Plan: 70-year-old female who presents the hospital with a transient episode of slurred speech being admitted for evaluation by Neurology episode of slurred speech initial concern for tia vs cva. Brain CT showing no acute ischemia Has had 2 previous episodes. Seen by Neurology, history consistent with complex partial seizure Has outpatient neurology appointment scheduled for later this week due to previous episodes, however this appointment is only a phone consultation -eeg prior to d/c -outpatient follow up with neuro as scheduled -no driving, no bathing or swimming alone history of peripheral vascular disease status post angioplasty - Continue Eliquis, Plavix, high-dose statin hypertension - stable - continue hydralazine, lisinopril, coreg GERD - continue pantoprazole spinal stenosis -continue gabapentin DVT prophylaxis: eliquis Code status-full code Attending physician-Dr. Mas Quality Stroke Does the patient have a stroke diagnosis?: No VTE Prior VTE?: No VTE Risk Level:: Medical - moderate - high VTE Device Contraindication: Treatment Not Indicated VTE Drug Contraindication: N/A - Med Ordered
[2020-12-05] MEDS: hydrALAZINE HCl 50 MG TABLET PO ×2 (15:12→20:49)
[2020-12-06] VITALS (9 sets, daily range): BP systolic 113–196; BP diastolic 68–98; PULSE 59–80; RESP 18; TEMP 36.4–36.8; O2SAT 92–98
[2020-12-06] MEDS: Omeprazole 20 MG CAPSULE.DR PO (06:41)
[2020-12-06] MEDS: Atorvastatin Calcium 80 MG TABLET PO (08:04)
[2020-12-06] MEDS: hydrALAZINE HCl 50 MG TABLET PO ×2 (08:04→16:06)
[2020-12-06] MEDS: Gabapentin 400 MG CAPSULE PO (08:04)
[2020-12-06] MEDS: Apixaban 5 MG TABLET PO (08:04)
[2020-12-06] MEDS: lisinopriL 10 MG TABLET PO (08:04)
[2020-12-06] MEDS: Potassium Chloride ER 20 MEQ TAB.ER.PRT PO (08:04)
[2020-12-06] MEDS: Clopidogrel Bisulfate 75 MG TABLET PO (08:05)
[2020-12-06] MEDS: carvediloL 12.5 MG TABLET PO (08:05)
--- NOTE | 2020-12-06 14:13 | P.DS_ITS ---
DS: Providers Provider Date of Service: 12/06/20 Date of admission: 12/04/20 23:15 Date of discharge: 12/06/20 Primary care physician: Unknown Physician Consults: 12/04/20 23:21 Consult to Neurology Routine Consulting Provider: [facility] Reason for consultation: TIA Has provider been notified: Yes Discharging clinician: Flor Lees DS: Diagnosis Discharge Diagnosis (1) Complex partial seizure: Status: Acute DS: Medications Discharge Medications Home Medications: Home Medications Medication Instructions Recorded Confirmed apixaban 5 mg tablet (Eliquis) 5 mg PO BID 12/04/20 12/04/20 atorvastatin 80 mg tablet 80 mg PO DAILY 12/04/20 12/04/20 carvedilol 12.5 mg tablet 12.5 mg PO BID 12/04/20 12/04/20 clopidogrel 75 mg tablet 75 mg PO DAILY 12/04/20 12/04/20 gabapentin 400 mg capsule 400 mg PO BID 12/04/20 12/04/20 hydralazine 50 mg tablet 50 mg PO TID 12/04/20 12/04/20 lisinopril 10 mg tablet 10 mg PO DAILY 12/04/20 12/04/20 montelukast 10 mg tablet 10 mg PO QPM 12/04/20 12/04/20 pantoprazole 40 mg tablet,delayed 40 mg PO DAILY 12/04/20 12/04/20 release potassium chloride 20 mEq 20 meq PO DAILY 12/04/20 12/04/20 tablet,extended release DS: Summary Hospital Course Hospital Course: Hp as per admitting provider 70-year-old female with a history of dementia, hypercholesterolemia, hypertension, peripheral vascular disease, spinal stenosis presents to the hospital with a transient episode of slurred speech.? Grandson at bedside confirmed information, patient reports that she had a long day traveling and that started at 7:00 a.m. and ended at 5:00 p.m. that day, she went to dinner with her grandchildren and at dinner she started having slurred speech, she reports that she tried talking but her mouth felt dry, her tongue felt heavy and she was not able to talk.? This was witnessed by her grandson who is currently at bedside.? Patient reports that the symptoms probably lasted about 10 minutes and she feels like she is back at her baseline right now.? She reports that she feels droopiness of her left eyelid, but has no weakness of upper or lower extremities.? She denies any numbness or tingling. She denies any chest pain, no shortness of breath, no abdominal pain nausea or vomiting, no diarrhea constipation, no urinary symptoms and no lower extremity edema . Complex partial seizure. initially presented with symptoms of TIA versus CVA. Brain CT showed no acute ischemia. She had 2 previous episodes like this. She was seen and evaluated by Neurology with recommendation for EEG. Symptoms seem most likely to be complex partial seizures. She does have an outpatient neurology appointment and [place] on that the . Patient has had no further symptoms during this admission. EEG remains pending. The recommendation from Neurology was also for no driving, bathing or swimming alone. Unfortunately, around 20:00 the patient decided to leave against medical advice. The crystal mounter was notified. Time Spent with Patient Time attestation: Total time spent providing and/or coordinating discharge services: Discharge coordination time: Less than 30 minutes Quality: Stroke Does the patient have a stroke diagnosis?: No Physical Exam Vital Signs: Vital Signs: Last Vital Signs Temp 97.8 F 12/06/20 11:29 Pulse 59 12/06/20 11:29 Resp 18 12/06/20 11:29 BP 113/68 12/06/20 11:29 Pulse Ox 95 12/06/20 11:29 Body Mass Index 19.3 unable to assess the patient prior to leaving against medical advice Discharge Plan Discharge Anticipated Discharge Date/Time: 12/06/20 14:05 Patient Disposition: Left Against Medical Advice Discharge Diagnosis: Complex partial seizure Referrals: Physician,Unknown [Primary Care Provider] - 1 Week Discharge Medications: Continued atorvastatin 80 mg Tablet 80 mg PO DAILY RF: 0 carvedilol 12.5 mg Tablet 12.5 mg PO BID RF: 0 gabapentin 400 mg Capsule 400 mg PO BID RF: 0 clopidogrel 75 mg Tablet 75 mg PO DAILY RF: 0 pantoprazole 40 mg Tablet,Delayed Release (Dr/Ec) 40 mg PO DAILY RF: 0 lisinopril 10 mg Tablet 10 mg PO DAILY RF: 0 montelukast 10 mg Tablet 10 mg PO QPM RF: 0 hydralazine 50 mg Tablet 50 mg PO TID RF: 0 Eliquis 5 mg Tablet 5 mg PO BID RF: 0 potassium chloride 20 mEq Tablet Extended Release 20 meq PO DAILY RF: 0 Discharge Orders: Discharge Order (Routine); Ordered 12/07/20 Ordered By: Flor Lees Diet: advance to usual diet Activity on Discharge: As tolerated Care Plan Goals: no further seizure type activity Health Concerns: Complex partial seizure Plan of Treatment: Follow up with your upcoming neurologist appointment LEFT AGAINST MEDICAL ADVICE AT 20:00 Assessment: See discharge summary Discharge Date/Time: 12/06/20 20:15
--- NOTE | 2020-12-06 15:14 | MHC.CM.PN ---
per rounds pt may dc today plan remains home no sercveis
== END 2020-12-06 20:15 | disposition left against medical advice (07) | DRG 101 ==
LOC: HO.ED 23:15 → HO.IMC 23:27
PROVIDERS: Admitting Provider Internal Medicine; Emergency Provider Emergency Medicine Emergency Medical Services; Visit Provider Family Medicine
DX: G40.802 Other epilepsy, not intractable, without status epilepticus (principal); F03.90 Unspecified dementia, unspecified severity, without behavioral disturbance, psychotic disturbance, mood disturbance, and anxiety; K21.9 Gastro-esophageal reflux disease without esophagitis; I10 Essential (primary) hypertension; Z20.822 Contact with and (suspected) exposure to COVID-19; Z79.02 Long term (current) use of antithrombotics/antiplatelets; Z79.899 Other long term (current) drug therapy
CPT/HCPCS: 36415; 70450; 80048; 80061; 80076; 80307; 81003; 82077; 82550; 82947; 84484; 85025; 85610; 85730; 87635; 93005; 95816; 97162; 97165; 99285